=== PATIENT | female | born 1965 | race African-American/Black ===

== ENCOUNTER 2018-10-11 10:37 | Emergency (ER) | payer BC, OTHER ==
[~2018-10-11] VITALS: Ht 172.7 cm; Wt 138.3 kg
[2018-10-11] MEDS ORDERED: LISINOPRIL40 MG PO (11:08)
[2018-10-11] MEDS ORDERED: OZEMPIC0.25 MG/0. SUBQ (11:09)
[2018-10-11] MEDS ORDERED: MAGOX 400400 MG PO (11:10)
[2018-10-11] MEDS ORDERED: BUPROPION XL150 MG PO (11:11)
[2018-10-11] MEDS ORDERED: TOPROL XL100 MG PO (11:12)
[2018-10-11] MEDS ORDERED: ADIPEX-P37.5 MG PO (11:12)
[2018-10-11] MEDS ORDERED: SPIRONOLACTONE25 M1 PO (11:12)
[2018-10-11] MEDS ORDERED: LANTUS100 UNIT/M SUBQ (11:13)
[2018-10-11] MEDS ORDERED: PROAIR HFA8.5 GM PO (11:15)
[2018-10-11 11:48] LABS: CALCIUM 9.3 mg/dL (8.5-10.1); POTASSIUM 3.5 mmol/L (3.5-5.1)
[2018-10-11 11:50] LABS: ABSOLUTE NEUTROPHILS 3.3 thou/uL (1.4-8.2); BASOPHILS 0.7 % (0.0-2.0); HEMATOCRIT 43.4 % (37.0-47.0); HEMOGLOBIN 14.3 gm/dL (12.0-15.0); LYMPHOCYTES 39.8 % (24.0-44.0); MCHC 32.9 g/dL (28.0-37.0); MCV 79.2 fL (80.0-100.0); MONOCYTES 7.2 % (1.0-8.0); PLATELET COUNT 370 thou/uL (150-400); POLYS 49.3 % (36.0-66.0); RBC 5.48 mil/uL (4.20-5.00); RDW 15.5 % (10.5-14.5); WBC 6.7 thou/uL (4.0-11.0)
[2018-10-11] MEDS ORDERED: ZYRTEC10 M2 PO (12:22)
[2018-10-11] MEDS ORDERED: HYDRALAZINE 2525 MG PO (12:22)
[2018-10-11] MEDS ORDERED: PREDNISONE 20 M20 MG PO (12:22)
[2018-10-11 12:51] VITALS: BP 173/96
== END 2018-10-11 12:53 | disposition home or self-care (01) ==
LOC: ER 10:37
PROVIDERS: Nurse Practitioner Family
DX: T78.3XXA Angioneurotic edema, initial encounter (principal); I10 Essential (primary) hypertension; E11.9 Type 2 diabetes mellitus without complications; Z79.4 Long term (current) use of insulin